=== PATIENT | female | born 1965 | race Caucasian/White ===

== ENCOUNTER 2024-04-25 14:49 | Outpatient (RCR) | payer BC, SELFPAY ==
[2024-04-25 15:00] VITALS: BP 138/87
[2024-04-25] MEDS: VENOFER 110 MG IV (15:11)
[2024-04-25 16:22] VITALS: BP 129/83
== END 2024-04-27 14:37 | disposition home or self-care (01) ==
LOC: OID 14:49
PROVIDERS: ATTENDING PHYSICIAN Family Medicine
DX: D50.9 Iron deficiency anemia, unspecified (principal); K75.4 Autoimmune hepatitis; Z98.84 Bariatric surgery status
CPT/HCPCS: 96365; J1756

== ENCOUNTER 2024-05-15 13:23 | Outpatient (RCR) | payer BC, SELFPAY ==
[2024-05-02 15:01] VITALS: BP 133/87
[2024-05-02] MEDS: VENOFER 110 MG IV (15:09)
[2024-05-02 16:43] VITALS: BP 127/87
[2024-05-09] MEDS: VENOFER 110 MG IV (15:00)
[2024-05-09 15:06] VITALS: BP 133/80
[2024-05-09 16:08] VITALS: BP 133/85
[2024-05-15 13:45] VITALS: BP 118/85
[2024-05-15] MEDS: VENOFER 110 MG IV (13:59)
[2024-05-15 15:06] VITALS: BP 122/75
== END 2024-05-22 12:38 | disposition home or self-care (01) ==
LOC: OID 13:23
PROVIDERS: ATTENDING PHYSICIAN Family Medicine
DX: D50.9 Iron deficiency anemia, unspecified (principal); K75.4 Autoimmune hepatitis; Z98.84 Bariatric surgery status
CPT/HCPCS: 96365; J1756

== ENCOUNTER 2024-05-30 14:46 | Outpatient (RCR) | payer BC, SELFPAY ==
[2024-05-30] MEDS: VENOFER 110 MG IV (15:13)
[2024-05-30 15:17] VITALS: BP 132/91
[2024-05-30 16:35] VITALS: BP 141/76
== END 2024-05-31 08:09 | disposition home or self-care (01) ==
LOC: OID 14:46
PROVIDERS: ATTENDING PHYSICIAN Family Medicine
DX: D50.9 Iron deficiency anemia, unspecified (principal); K75.4 Autoimmune hepatitis; Z98.84 Bariatric surgery status
CPT/HCPCS: 96365; J1756

== ENCOUNTER → 2024-10-31 15:56 | Outpatient (REF) | payer BC, SELFPAY | LOC: HWRAD 15:56 | PROVIDERS: ATTENDING PHYSICIAN Nurse Practitioner Family; FAMILY PHYSICIAN Family Medicine | DX: M54.16 Radiculopathy, lumbar region (principal) | CPT/HCPCS: 72110 ==

== ENCOUNTER → 2024-11-11 10:13 | Outpatient (REF) | payer BC, SELFPAY | LOC: RCS 10:13 | PROVIDERS: ATTENDING PHYSICIAN Nurse Practitioner Family | DX: I48.92 Unspecified atrial flutter (principal) | CPT/HCPCS: 93306 ==

== ENCOUNTER → 2025-01-03 15:24 | Outpatient (REF) | payer BC, SELFPAY | LOC: HWRAD 15:24 | PROVIDERS: ATTENDING PHYSICIAN Family Medicine | DX: E04.1 Nontoxic single thyroid nodule (principal) | CPT/HCPCS: 76536 ==

== ENCOUNTER 2025-03-27 06:44 | Day surgery (SDC) | payer BC, SELFPAY ==
[2025-03-27 07:48] VITALS: BMI 54.7
--- NOTE | 2025-03-27 08:00 | ITS.CL.CARDI ---
[employer] - Cardioversion
Cardioversion
Procedure Report:
Date of Procedure: 03/17/25
Procedure: Cardioversion
Indication: Symptomatic atrial fibrillation
Performing Physician: Cecilio Alegre MD
Technique: The patient was brought to the holding area. Signed informed consent was obtained. A time out was called and performed. The patient was anesthetized by the anesthesia service. Anticoagulation status was reviewed and appropriate. R2 pads
were placed anteriorly and posteriorly. A 200 J synchronized biphasic shock restored normal sinus rhythm without significant bradycardia. There were no complications.
Conclusion: Uncomplicated cardioversion from atrial fibrillation to sinus rhythm.
Recommendation: Routine post cardioversion care. Continue nurse reviewer anticoagulation.
== END 2025-03-27 08:55 | disposition home or self-care (01) ==
LOC: CATH 06:44
PROVIDERS: ATTENDING PHYSICIAN Internal Medicine Cardiovascular Disease; FAMILY PHYSICIAN Family Medicine; OTHER PHYSICIAN Internal Medicine Cardiovascular Disease
DX: I48.91 Unspecified atrial fibrillation (principal); I48.92 Unspecified atrial flutter; M79.606 Pain in leg, unspecified; M54.30 Sciatica, unspecified side; J45.909 Unspecified asthma, uncomplicated; G47.33 Obstructive sleep apnea (adult) (pediatric); K21.9 Gastro-esophageal reflux disease without esophagitis; K58.0 Irritable bowel syndrome with diarrhea; K75.4 Autoimmune hepatitis; K76.0 Fatty (change of) liver, not elsewhere classified; R42 Dizziness and giddiness; F32.A Depression, unspecified; E66.01 Morbid (severe) obesity due to excess calories; F41.9 Anxiety disorder, unspecified; I44.0 Atrioventricular block, first degree; K58.9 Irritable bowel syndrome, unspecified; Z79.01 Long term (current) use of anticoagulants; Z79.82 Long term (current) use of aspirin; Z79.899 Other long term (current) drug therapy; Z88.1 Allergy status to other antibiotic agents; Z90.49 Acquired absence of other specified parts of digestive tract; Z98.84 Bariatric surgery status
CPT/HCPCS: 92960; 93005